=== PATIENT | male | born 1955 | race Caucasian/White ===

== ENCOUNTER 2016-12-18 08:21 | Emergency (ER) | payer OTHER ==
[~2016-12-18] VITALS: Ht 172.7 cm; Wt 63.5 kg
--- NOTE | 2016-12-18 09:35 | ED NEURO DEFICIT/STROKE ---
History of Present Illness General Chief Complaint: General Adult Stated Complaint: INTERMITTANT BLURRY VISION, DIZZY SPELLS Source: patient Exam Limitations: no limitations Vital Signs & Intake/Output Vital Signs & Intake/Output ED Intake and Output 12/19 0000 12/18 1200 Intake Total 30 Output Total Balance 30 Intake, Oral 30 Patient 140 lb Weight Allergies Coded Allergies: No Known Allergies (12/18/16) Triage Note: TRIAGE: PT TO ER C/C INTERMITTENT BLURRY VISION, DIZZY/LIGHTHEADED, HEAD PAIN AND "I GET COLD A LOT". ONSET 4-5 WEEKS AGO. S/S ARE INTERMITTENT SINCE ONSET. HAS APPT WITH NEUROLOGIST TOMORROW. REPORTS "I HAD A NASTY DIZZY SPELL YESTERDAY". Triage Nurses Notes Reviewed? yes Onset: Gradual Duration: worse persistent since (5 WEEKS), SERVERAL MONTHS Timing: recent history Severity: mild Vision Problem? Yes Impaired Ability: off balance Associated Symptoms: HEADACHE HPI: 61 year old male presents with a 5 week history of dizzy spells, blurred vision which resolved within minutes, feeling of lightheadedness. He also reports intermittent associated low grade headache. Headache is tempoparietal on left sided. Radiating to neck and occiput. Patient went to an opthalmologist last week and had a normal dilated exam. No retinal issues, no optic neuritis, occlusions, etc. He is due to follow up with neurology on Monday. No positional changes in symptoms. Patient with diagnosis of antiphospholipid syndrome vs lupus vs scleroderma but states he took himself off plaquenil 3 years ago. Past History Travel History Traveled to [place] past 21 day No Medical History Any Pertinent Medical History? 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 No Review of Systems Review of Systems Constitutional: Denies: chills, fever. EENTM: Reports: blurred vision. Respiratory: Denies: cough, short of breath. Cardiovascular: Denies: chest pain, palpitations, peripheral edema, syncope. GI: Denies: abdominal pain. Genitourinary: Reports: no symptoms. Musculoskeletal: Reports: no symptoms. Skin: Reports: no symptoms. Neurological/Psychological: Reports: ataxia, headache. Hematologic/Endocrine: Denies: bruising, bleeding. Immunologic/Allergic: Denies: splenectomy. Physical Exam Physical Exam General Appearance: well developed/nourished, alert, awake Head: atraumatic, normal appearance Eyes: Bilateral: normal appearance, PERRL, EOMI. Ears, Nose, Throat: normal ENT inspection, hearing grossly normal Neck: normal inspection, supple, full range of motion Respiratory: normal breath sounds, chest non-tender, quiet respiration Cardiovascular: regular rate/rhythm Peripheral Pulses: 2+ radial (R), 2+ radial (L) Gastrointestinal: soft, non-tender Back: normal inspection, normal range of motion Extremities: normal range of motion Psychiatric: awake, alert, oriented x 3 Cranial Nerves: normal hearing, normal speech, PERRL Coordination/Gait: normal finger to nose, normal gait Motor/Sensory: no motor/sensory deficits Skin: intact, normal color, warm/dry Core Measures CVA/TIA Diagnosis: No Severe Sepsis Present: No Septic Shock Present: No Progress Differential Diagnosis: stroke, TIA, IC BLEED, VASCULAR MALFORMATION Plan of Care: Orders Procedure Date/time Status PARTIAL THROMBOPLASTIN TIME 12/18 933 Complete PROTHROMBIN TIME 12/18 933 Complete WESTERGREN SED RATE 12/18 933 Active COMPREHENSIVE METABOLIC PANEL 12/18 933 Complete CBC WITHOUT DIFFERENTIAL 12/18 933 Active EKG 12/18 912 Active Laboratory Tests 12/18/16 1001: Anion Gap 9, Estimated GFR > 60, BUN/Creatinine Ratio 17.5, Glucose 112 H, Calcium 9.8, Total Bilirubin 0.7, AST 23, ALT 36, Alkaline Phosphatase 57, Total Protein 7.6, Albumin 4.5, Globulin 3.1, Albumin/Globulin Ratio 1.5, PT 21.2 H, INR 2.03 H, APTT 50 H, CBC w Diff NO MAN DIFF REQ, RBC 5.35, MCV 87.0, MCH 29.0, RDW 14.2, MPV 6.7 L, Gran % 74.7, Lymphocytes % 15.9 L, Monocytes % 7.6, Eosinophils % 1.5, Basophils % 0.3, Absolute Granulocytes 5.6, Absolute Lymphocytes 1.2, Absolute Monocytes 0.6, Absolute Eosinophils 0.1, Absolute Basophils 0, PUBS MCHC 33.3, ESR Westergren Pending NEURO EXAMINATION NORMAL. CT RESULTS DISCUSSED WITH PATIENT AND COPY OF REPORT GIVEN. HE HAS AN APPOINTMENT TOMORROW WITH DR MAY NEUROLOGY AND WILL LIKELY NEED MRI/MRA. NO CURRENT SYMPTOMS. INR 2.03. (SHANTA DASILVA,ZOFIA) Diagnostic Imaging: Viewed by Me: CT Scan. Discussed w/RAD: CT Scan. Radiology Impression: PATIENT: GLYNN ABBOTT PRESENT AGE: 61 PATIENT ACCOUNT NO: [id number] : 59 LOCATION: [facility] ORDERING PHYSICIAN: ZOFIA WOMACK MD SERVICE DATE: 12/18/16 EXAM TYPE: CAT - CT HEAD WO IV CONTRAST EXAMINATION: CT HEAD WITHOUT CONTRAST CLINICAL INFORMATION: 61-year-old male with history of connective tissue disorder, presented with headache, intermittent blurred vision. Patient is on Coumadin. COMPARISON: None TECHNIQUE: Contiguous axial imaging was performed from the skull base to vertex without intravenous administration of contrast. DLP: 600.71 mGy-cm FINDINGS: There is no evidence of acute intracranial hemorrhage or territorial infarction. No abnormal mass effect or midline shift is seen. [place] to white matter differentiation is well preserved. No extra-axial fluid collections are identified. The ventricles are normal in size. There is no abnormal attenuation within the brain parenchyma. Dolichoectasia related changes are present within the vertebral basilar artery. The osseous structures and soft tissues are normal. The mastoid air cells and visualized portions of the paranasal sinuses are well aerated. IMPRESSION: No acute intracranial pathology. Dolichoectasia of the vertebrobasilar artery. DICTATED BY: JACKIE ROCHA MD DATE/TIME DICTATED:12/18 RETAIL CLIENT MANAGER:KATY DATE/TIME TRANSCRIBED:12/18/161000 CONFIDENTIAL, DO NOT COPY WITHOUT APPROPRIATE AUTHORIZATION. <Electronically signed in Other Vendor System> SIGNED BY: JACKIE ROCHA MD 12/18/16 1010 Initial ED EKG: NSR, INCOMP RBBB Departure Departure Time of Disposition: 1044 Disposition: HOME OR SELF CARE Condition: Stable Clinical Impression Primary Impression: Blurred vision Referrals: YADIRA DASILVA,YUE FRANCO MD,BETH Oliva (PCP/Family) Additional Instructions: Please follow-up with your appointment with Dr. May neurology tomorrow. Take a copy of the CT scan report done from today. Your INR was in normal limits. Return to the ER for worsening headache, blurred vision or dizziness. Departure Forms: Customer Survey General Discharge Information
--- NOTE | 2016-12-18 10:10 | CT SCAN REPORT ---
EXAMINATION: CT HEAD WITHOUT CONTRAST CLINICAL INFORMATION: 61-year-old male with history of connective tissue disorder, presented with headache, intermittent blurred vision. Patient is on Coumadin. COMPARISON: None TECHNIQUE: Contiguous axial imaging was performed from the skull base to vertex without intravenous administration of contrast. DLP: 600.71 mGy-cm FINDINGS: There is no evidence of acute intracranial hemorrhage or territorial infarction. No abnormal mass effect or midline shift is seen. [place] to white matter differentiation is well preserved. No extra-axial fluid collections are identified. The ventricles are normal in size. There is no abnormal attenuation within the brain parenchyma. Dolichoectasia related changes are present within the vertebral basilar artery. The osseous structures and soft tissues are normal. The mastoid air cells and visualized portions of the paranasal sinuses are well aerated. IMPRESSION: No acute intracranial pathology. Dolichoectasia of the vertebrobasilar artery.
[2016-12-18 10:18] LABS: ABSOLUTE BASOPHIL COUNT 0 /CUMM (0.0-0.2); ABSOLUTE EOSINOPHIL COUNT 0.1 /CUMM (0.0-0.7); ABSOLUTE GRANULOCYTE CT 5.6 /CUMM (1.4-6.5); ABSOLUTE LYMPH COUNT 1.2 /CUMM (1.2-3.4); ABSOLUTE MONOCYTE COUNT 0.6 /CUMM (0.10-0.60); BASOPHIL % 0.3 % (0.0-2.0); EOSINOPHIL % 1.5 % (0-5); GRANULOCYTE % 74.7 % (42.2-75.2); HEMATOCRIT 46.5 % (42-52); MEAN CORPUSCULAR HGB CONC 33.3 G/DL (33.0-37.0); MEAN PLATELET VOLUME 6.7 FL (7.4-10.4); PLATELET COUNT 315 /CUMM (130-400); RBC DISTRIBUTION WIDTH 14.2 % (11.5-14.5); RED BLOOD CELL CT 5.35 /CUMM (4.70-6.10); WHITE BLOOD CELL COUNT 7.5 /CUMM (4.8-10.8)
[2016-12-18 10:21] LABS: PT 21.2 SEC (9.4-12.5); PTT 50 SEC (25-37)
[2016-12-18 11:09] VITALS: BP 146/93
== END 2016-12-18 11:18 ==
LOC: ERH 08:21
PROVIDERS: Emergency Medicine
DX: H53.8 Other visual disturbances (principal); R51 Headache
CPT/HCPCS: 93005; 93010